=== PATIENT | female | born 1995 | race African-American/Black ===

== ENCOUNTER 2018-05-11 01:46 | Emergency (ER) | payer SELFPAY ==
[~2018-05-11] VITALS: Ht 165.1 cm; Wt 54.4 kg
[2018-05-11] MEDS ORDERED: NKM (01:54)
[2018-05-11] MEDS ORDERED: Tetanus/Diptheria/Pertussis Vaccine 0.5ml Syr IM ONE (02:15)
[2018-05-11] MEDS ORDERED: Bacitracin Oint UD TOPIC ONE (02:45)
[2018-05-11 02:49] VITALS: BP 108/59
[2018-05-11] MEDS ORDERED: CEPHALEXIN500 MG ORAL (03:12)
[2018-05-11] MEDS ORDERED: IBUPROFEN600 MG ORAL (03:12)
--- NOTE | 2018-05-11 03:13 | Emergency Room Report ---
History of Present Illness General Chief Complaint: Laceration Source: Patient Present Illness HPI Is a 23-year-old female with no significant past medical history other than asthma. She presents with chief complaint of laceration to the right calf. She was angry and kicked the window. In the process he sustained laceration to her leg. No other injury. No foreign body. This occurred just prior to arrival. Pain is 9 out of 10. Worse with movement. Allergies: Coded Allergies: No Known Allergies (Unverified , 05/11/18) Patient History Past Medical History: see triage record, old chart reviewed, asthma, psych hx - anxiety Past Surgical History: other Pertinent Family History: none Social History: Denies: smoking Last Menstrual Period: May Now: No Immunizations: other Reviewed Nursing Documentation: PMH: Agreed; PSxH: Agreed Nursing Documentation-PMH Past Medical History: No Stated History Review of Systems Eye: Denies: eye pain, blurred vision ENT: Denies: ear pain, nose congestion, throat swelling Respiratory: Denies: cough, shortness of breath Cardiovascular: Denies: chest pain, palpitations Gastrointestinal: Denies: abdominal pain, diarrhea, nausea, vomiting Musculoskeletal: Denies: back pain, joint pain Skin: Denies: rash Neurological: Denies: headache, numbness Endocrine: Denies: increased thirst, increased urine Hematologic/Lymphatic: Denies: easy bruising All Other Systems: negative except mentioned in HPI Physical Exam Vital Signs Date Time Temp Pulse Resp B/P (MAP) Pulse Ox O2 Delivery O2 Flow Rate FiO2 05/11/18 01:49 98.2 75 16 109/67 98 Room Air 98.2 vitals henry Sp02 EP Interpretation: reviewed, normal General Appearance: well appearing, no apparent distress, alert Head: normocephalic, atraumatic Eyes: bilateral eye PERRL, bilateral eye EOMI ENT: hearing grossly normal, normal pharynx Neck: full range of motion, supple, no meningismus Respiratory: chest non-tender, lungs clear, normal breath sounds Cardiovascular #1: regular rate, rhythm, no murmur Gastrointestinal: normal bowel sounds, non tender, no mass, no organomegaly, no bruit, non-distended Musculoskeletal: back normal, gait/station normal, normal range of motion, other - Right calf: There are multiple superficial lacerations, some with skin avulsion. No foreign body. This measured about 20 cm. Neurologic: alert, oriented x3 Psychiatric: mood/affect normal Skin: warm/dry Procedures Laceration/Wound Repair Laceration/Wound Repair : Consent: Verbal Wound Location: lower extremity Wound's Depth, Shape: superficial, irregular, stellate, contused tissue Wound Length (cm): 20 Wound Explored: clean Irrigated w/ Saline (ccs): 1000 Betadine Prep?: Yes Anesthesia: 1% Lidocaine Volume Anesthetic (ccs): 15 Wound Debrided: minimal Suture Size/Type: 4:0, other - chromic Number of Sutures: 17 Patient Tolerated: Well Complications: None Medical Decision Making Diagnostic Impression: Primary Impression: Laceration ER Course Patient with right lower extremity laceration. There is no foreign body or tendon laceration. No fracture. Low risk for infection. We'll discharge home. Last Vital Signs Date Time Temp Pulse Resp B/P (MAP) Pulse Ox O2 Delivery O2 Flow Rate FiO2 05/11/18 02:49 98.0 62 12 108/59 100 Room Air 98.0 Status: improved Disposition: HOME, SELF-CARE Condition: Stable Scripts Ibuprofen* (MOTRIN*) 600 Mg Tablet 600 MG ORAL THREE TIMES A DAY, #30 TAB 0 Refills Prov: MARCELL GREGORIO M.D. 05/11/18 Cephalexin* (KEFLEX*) 500 Mg Capsule 500 MG ORAL TID, #21 CAP Prov: MARCELL GREGORIO M.D. 05/11/18 Referrals: NOT CHOSEN [facility]/,REFERRING (PCP) Patient Instructions: Laceration Care, Adult Additional Instructions: Follow-up with your doctor in 3-5 days for recheck. Keep wound clean. Apply antibiotic ointment. Return if worse. MARCELL GREGORIO M.D. May 11, 2018 03:13
[2018-05-11 03:16] VITALS: BP 0/0
== END 2018-05-11 03:16 | disposition home or self-care (01) ==
LOC: EMR 02:24
DX: S81.811A Laceration without foreign body, right lower leg, initial encounter (principal); W22.8XXA Striking against or struck by other objects, initial encounter; W25.XXXA Contact with sharp glass, initial encounter; Y92.9 Unspecified place or not applicable; Z23 Encounter for immunization
CPT/HCPCS: 90471; 90715; 99283